=== PATIENT | female | born 1995 | race Caucasian/White ===

== ENCOUNTER 2020-07-26 11:00 | Outpatient (RCR) | payer OTHER, SELFPAY | END 2020-08-10 10:46 | disposition home or self-care (01) | LOC: HO.PTCHIC 11:00 | PROVIDERS: PCP Pediatrics; Visit Provider Pediatrics | DX: M54.9 Dorsalgia, unspecified (principal) | CPT/HCPCS: 97110; 97112; 97161 ==

== ENCOUNTER 2022-12-24 19:02 | Outpatient (REF) | payer OTHER, SELFPAY | END 2022-12-24 19:03 | disposition home or self-care (01) | LOC: HO.CHCLNP 19:02 | PROVIDERS: Visit Provider Advanced Practice Midwife | DX: Z12.4 Encounter for screening for malignant neoplasm of cervix (principal) | CPT/HCPCS: 88142 ==

== ENCOUNTER 2023-01-15 11:53 | Outpatient (REF) | payer OTHER, SELFPAY ==
[2023-01-15 14:27] LABS: MANUAL DIFF FLAG NO
[2023-01-15 14:43] LABS: Basophils Percent Auto 0.5 % (0-2); Eosinophils Absolute Auto 0.1 X10*3/uL (0.0-0.4); Eosinophils Percent Auto 0.8 % (0-4); Hematocrit 37.6 % (37.0-47.0); Hemoglobin 11.9 g/dl (12.0-16.0); Imm Gran Abs Auto 0.03 X10*3/uL (0.00-0.03); Imm Gran Pct Auto 0.4 % (0.0-0.4); Lymphocytes Absolute Auto 1.5 X10*3/uL (1.2-4.9); Lymphocytes Percent Auto 19.6 % (20-40); Mean Corpuscular HGB Conc 31.6 g/dl (31.0-35.0); Mean Corpuscular Volume 85.3 fL (80.0-98.0); Mean Platelet Volume 10.6 fL (9.4-12.3); Monocytes Absolute Auto 0.6 X10*3/uL (0.1-1.2); Monocytes Percent Auto 7.9 % (2-11); Neutrophils Absolute Auto 5.5 x10*3/uL (2.0-8.3); Neutrophils Percent Auto 70.8 % (45-73); Platelet Count 336 X10*3/uL (160-400); Red Blood Count 4.41 X10*6/uL (4.20-5.50); White Blood Count 7.8 X10*3/uL (4.8-10.8)
[2023-01-15 14:53] LABS: Alanine Aminotransferase 20 U/L (0-31); Alkaline Phosphatase 86 U/L (39-117); Anion Gap 11 (12-20); Aspartate Amino Transferase 15 U/L (5-31); Bilirubin Direct 0.2 mg/dL (0.0-0.5); Bilirubin Total 0.7 mg/dL (0.0-1.0); Blood Urea Nitrogen 12 mg/dL (9-16); Calcium 9.4 mg/dL (8.4-10.2); Carbon Dioxide 27 mmol/L (22-29); Chloride 102 mmol/L (96-108); Cholesterol 138 mg/dL (<200); Estimated Glomerular Filt Rate > 60; Glucose Random 78 mg/dL (60-115); HDL Cholesterol 42 mg/dL (>40); LDL Cholesterol Calculated 82 mg/dL (<100); Potassium 4.2 mmol/L (3.3-5.1); Sodium 136 mmol/L (135-145); Total Protein 8.2 g/dL (6.5-8.0); Triglycerides 71 mg/dL (<150)
[2023-01-15 15:12] LABS: TSH reflex Free T4 0.87 uIU/mL (0.32-4.0); Vitamin D 25-OH Total 26.4 ng/mL (>30)
== END 2023-01-15 11:54 | disposition home or self-care (01) ==
LOC: HO.CHCLDS 11:53
PROVIDERS: Visit Provider Pediatrics
DX: E66.9 Obesity, unspecified (principal); Z68.39 Body mass index [BMI] 39.0-39.9, adult
CPT/HCPCS: 36415; 80048; 80061; 80076; 82306; 84443; 85025

== ENCOUNTER 2024-04-29 | Outpatient (REF) | payer BC, SELFPAY ==
[2024-05-07 09:35] LABS: HPV Genotype 16 Negative (Negative); HPV Genotype 18 Negative (Negative); HPV High Risk Negative (Negative)
--- OUTSIDE RECORDS SUMMARY | 2024-08-12 13:05 | XMS_ITS | Clinical Summary ---
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 Role Phone Hawa Nation MD Primary Care Provider [phone] Allergies Active Allergy Reactions Criticality Noted Date Comments Fish Allergy Hives 12/29/2019 Green Soap Tincture 12/24/2022 [facility] soap Medications cetirizine (ZyrTEC) 10 MG tablet TAKE 1 TABLET BY MOUTH EVERY DAY IN THE MORNING 30 tablet 11 08/02/2022 Active fluticasone (Flonase) 50 MCG/ACT nasal sprayIndication s:Rhinosinusiti s SPRAY 1 SPRAY INTO EACH NOSTRIL IN THE MORNING 16 mL 3 08/27/2022 Active Vit-Fe Fumarate-FA ( Plus) 27-1 MG tablet One tablet by mouth daily 30 tablet 11 04/29/2024 Active Active Problems Problem Noted Date Diagnosed Date Elevated blood pressure reading 07/01/2022 Rhinosinusitis 07/01/2022 Assessment & Plan (07/01/2022 4:22 PM EDT): Use NS prn rhinorrhea. Rx Flonase + loratadine daily Take ibuprofen prn fever, body aches Out of work x 1d, back on 07/03 Social History Tobacco Use Types Packs/Day Years Used Date Smoking Tobacco: Never Passive Smoke Exposure: Never Smokeless Tobacco: Never Tobacco Cessation:Counseling Given: Not Answered Alcohol Use Standard Drinks/Week Comments Yes 0 (1 standard drink = 0.6 oz pur e alcohol) Just socially Comments No Intention Date Recorded Wants to become (finding) 04/29 Sex and Gender Information Value Date Recorded Sex Assigned at Female 12/17/2021 10:35 AM EDT Legal Sex Female 10:35 AM EDT Gender Identity Female 12/24/2022 11:26 AM EST Sexual Orientation Straight 04/10/2023 8: 33 PM EST Last Filed Vital Signs Vital Sign Reading Time Taken Comments Blood Pressure 141/82 04/29/2024 9:08 AM EDT Pulse 65 04/29/2024 9:08 AM EDT Temperature 37 C (98.6 F) 04/29/2024 9:08 AM EDT Respiratory Rate 18 04/29/2024 9:08 AM EDT Oxygen Saturation 98% 04/29/2024 9:08 AM EDT Inhaled Oxygen Concentration - - Weight 122 kg (268 lb) 04/29/2024 9:08 AM EDT Height 170.2 cm (5' 7 ) 04/29/2024 9:08 AM EDT Body Mass Index 41.97 04/29/2024 9:08 AM EDT Plan of Treatment Health Maintenance Due Date Last Done Comments Depression Screening 1995 SDOH Screening 1995 Alcohol/Substance Use Screening 2006 Hepatitis B Vaccines (1 of 3 - 19+ 3-dose series) 2013 COVID-19 Vaccine ( season) 2023 Influenza Vaccine (Season Ended) 2024 10/19/2016, 09/25/2016, 04/25/2015, Additional history exists Disability Screening 04/28/2025 04/28/2024 Family Planning (PISQ) 04/29/2025 04/29/2024 Tobacco Screening 04/29/2025 04/29/2024 HPV/Cotest 04/30/2027 04/29/2024 Pap Smear 04/30/2027 04/29/2024, 11/0 08/2022, 12/29/2019 DTaP/Tdap/Td Vaccines (2 - Td or Tdap) 08/16/2031 08/15/2021 Zoster Vaccines (1 of 2) 2044 RSV Patients and Patients Aged 60 years or older (1 - 1-dose 75+ series) 2069 Hepatitis A Vaccines Aged Out 10/16/2015 No long er eligible based on patient's age to complete this topic HIV Screening Completed 04/29/2024 Hepatitis C Screening Completed 04/29/2024 HIB Vaccines Aged Out No longer eligi ble based on patient's age to complete this topic HPV Vaccines Aged Out No longer eligi ble based on patient's age to complete this topic IPV Vaccines Aged Out No longer eligi ble based on patient's age to complete this topic Meningococcal B Vaccine Aged Out No l onger eligible based on patient's age to complete this topic Meningococcal Vaccine Aged Out No inez ronnell eligible based on patient's age to complete this topic Pneumococcal Vaccine: Pediatrics (0 to 5 Years) and At-Risk Patients (6 to 49) Years Aged Out No longer eligible based on patient's age to complete this topic RSV under 20 months Aged Out No longe r eligible based on patient's age to complete this topic Rotavirus Vaccines Aged Out No longer eligible based on patient's age to complete this topic Procedures Procedure Name Priority Date/Time Associated Diagnosis Comments US PELVIS TRANSVAGINAL Routine 05/13/2024 Dysmenorrhea US PELVIS COMPLETE Urgent 05/13/2024 Dysmenorrhea HEPATITIS C AB W/REFL TO HCV RNA, QN, PCR Routine 04/29/2024 9:59 AM EDT Screening examination for venereal disease HIV 1/2 ANTIGEN/ANTIBODY, FOURTH GENERATION W/RFL Routine 04/29/2024 9:59 AM EDT Screening examination for venereal disease HPV DNA, LOW/HIGH RISK Routine 04/29/2024 9:34 AM EDT PAP SMEAR Routine 04/29/2024 9:34 AM EDT Cervical cancer screening from Last 3 Months or Most Recently Relevant to Health Maintenance Results * Us Pelvis complete (05/13/2024) Anatomical Region Laterality Modality Pelvis Ultrasound us Radha Olson [facility] IM US PROCEDURES Final R esult * US Pelvis Transvaginal (05/13/2024) Anatomical Region Laterality Modality Pelvis Ultrasound Result [facility] Radha Olson [facility] US PROCEDURES Final R esult * Hepatitis C Antibody with Reflex to HCV, RNA, Quantitative, Real-Time PCR (04/29/2024 9:59 AM EDT) [facility] Hepatitis C Antibody Nonreactive Nonreactive [facility] Comment:Antibodies to HCV no t detected; does not exclude early acuteHCV infection. Blood Venous blood specimen / Unknown 04/29/2024 9:59 AM EDT 04/29/2024 2:13 PM EDT Result [facility] LAB BLOOD ORDERABLES Daxa em Result [facility] [address] [place] [phone] * HIV-1/2 Antigen and Antibodies, Fourth Generation, with Reflexes (04/29/2024 9:59 AM EDT) [facility] HIV AB/AG Nonreactive Nonreactive [facility] Comment:HIV-1 p24 Ag and/or HIV-1/HIV-2 Ab not detected.A test result that is nonreactive does not exclude thepossibility of exposure to or infection with HIV-1 and/orHIV-2. Nonreactive results in this assay for individualswith prior exposure to HIV-1 and/or HIV-2 may be due toantigen and antibody levels that are below the limit ofdetection of this assay.The [employer] [employer] HIV Ag/Ab Combo assay result andsupplemental assay results should be interpreted inconjunction with the patient's clinical presentation,history and other laboratory results. If the results areinconsistent with clinical evidence, additional testing issuggested to confirm the result. Blood Venous blood specimen / Unknown 04/29/2024 9:59 AM EDT 04/29/2024 2:13 PM EDT Radha Olson [facility] LAB BLOOD ORDERABLES Daxa l Result Performing Organization Address [facility]/ZIP Co de Phone Number [facility] [address] [place] [phone] * HPV DNA, Low/High Risk (04/29/2024 9:34 AM EDT) HPV High Risk Negative Negative [facility] HPV Genotype 16 Negative Negative [facility] HPV Genotype 18 Negative Negative [facility] Comment:HPV testing performe d at [facility] (CLIA#[id number]), [address] [place] [address].Testing for HPV was performed using the Sara LOW 6800system. The presence of HPV in the female genital tract isassociated with a number of diseases, including cervicalcarcinoma. The HPV DNA high risk pool tests for HPV 31, 33,35, 39, 45, 51, 52, 56, 58, 59, 66 and 68. The testing forHPV 16 and 18 genotypes has also been performed. A positiveresult indicates detection of nucleic acid sequences fromone or more subtypes, whereas a negative result indicatessuch sequences were not detected. 04/29/2024 9:34 AM EDT 04/30/2024 9:34 AM EDT Radha Olson [facility] LAB BLOOD ORDERABLES Daxa l Result Performing Organization Address City/[facility]/ZIP Co de Phone Number [facility] [address] [place] [phone] * Pap Smear (04/29/2024 9:34 AM EDT) Swab Cervix uteri structure / Unknown 04/29/2024 9:34 AM EDT 04/30/2024 7:30 AM EDT Narrative [facility] - 05/10/2024 8:41 AM EDT ----- ------- Name: Mandy Whitfield Age/Sex: 28/F : 1995 Unit#: [id number] Attend Dr: Re04/29/24 Status: PRE REF Location: [facility] Disch: ----- ------- SPEC : [id number] RECD: 04/30/24 STATUS: WICHO LONG NUM: [id number] CHAPARRITA: 04/29/[address]: RADHA OLSON [facility] ENTERED: 04/30/24 SP TYPE: Pap Smr OT DR: ORDERED: Pap Smear Interpretation Satisfactory for evaluation. Negative for intraepithelial lesion or malignancy. Coccobacilli consistent with shift in vaginal pardeep. Mild inflammation. 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
== END 2024-04-29 00:01 | disposition home or self-care (01) ==
LOC: HO.LNP
PROVIDERS: Visit Provider Advanced Practice Midwife
DX: Z11.3 Encounter for screening for infections with a predominantly sexual mode of transmission (principal)
CPT/HCPCS: 87491; 87591; 87626; 87661; 88175

== ENCOUNTER 2024-04-29 09:54 | Outpatient (REF) | payer BC, SELFPAY ==
--- OUTSIDE RECORDS SUMMARY | 2024-04-29 12:12 | XMS_ITS | Clinical Summary ---
Author Organization [employer] Address [address] [facility] 7[address] [place] [address] Care Team Providers Care Registered Pharmacy Technician Name Role Phone Hawa Nation MD Primary Care Provider [phone] Allergies Active Allergy Reactions Criticality Noted Date Comments Fish Allergy Hives 12/29/2019 Green Soap Tincture 12/24/2022 [facility] soap Medications cetirizine (ZyrTEC) 10 MG tablet TAKE 1 TABLET BY MOUTH EVERY DAY IN THE MORNING 30 tablet 11 08/03/19 23 Active fluticasone (Flonase) 50 MCG/ACT nasal sprayIndicatio ns:Rhinosinusi tis SPRAY 1 SPRAY INTO EACH NOSTRIL IN THE MORNING 16 mL 3 08/28/19 23 Active naproxen (Naprosyn) 500 MG tablet Take 1 tablet (500 mg) by mouth 2 times daily. Take with food during menses up to 7 days. 60 tablet 04/30/19 25 025 Active Vit-Fe Fumarate-FA ( Plus) 27-1 MG tablet One tablet by mouth daily 30 tablet 11 04/30/19 25 Active Vit-Fe Fumarate-FA ( Plus) 27-1 MG tablet One tablet by mouth daily 30 tablet 11 04/12/19 24 025 Discontinued(Re order (will not trigger notification to Pharmacy)) Active Problems Problem Noted Date Diagnosed Date Elevated blood pressure reading 07/01/2022 Rhinosinusitis 07/01/2022 Assessment & Plan (07/01/2022 4:22 PM EDT): Use NS prn rhinorrhea. Rx Flonase + loratadine daily Take ibuprofen prn fever, body aches Out of work x 1d, back on 07/03 Encounters Date Type Department Care Team Description 04/29/2024 9:00 AM EDT Procedure Visit [facility] [address] [place] [address] Sandrine Olson CNM Cervical cancer screening (Primary Dx); Screening examination for venereal disease; Procreative management; Dysmenorrhea 04/28/2024 Telephone [facility] [address] [place] [address] Hawa Nation MD Insurance 04/28/2024 Travel from Last 3 Months Social History Tobacco Use Types Packs/Day Years Used Date Smoking Tobacco: Never Passive Smoke Exposure: Never Smokeless Tobacco: Never Tobacco Cessation:Counseling Given: Not Answered Alcohol Use Standard Drinks/Week Comments Yes 0 (1 standard drink = 0.6 oz pur e alcohol) Just socially Comments No Sex and Gender Information Value Date Recorded Sex Assigned at Female 12/17/2021 10:35 AM EDT Legal Sex Female 10:35 AM EDT Gender Identity Female 12/24/2022 11:26 AM EST Sexual Orientation Straight 04/10/2023 8: 33 PM EST Last Filed Vital Signs Vital Sign Reading Time Taken Comments Blood Pressure 141/82 04/29/2024 9:08 AM EDT Pulse 65 04/29/2024 9:08 AM EDT Temperature 37 ??C (98.6 ??F) 04/29/2024 9:08 AM EDT Respiratory Rate 18 04/29/2024 9:08 AM EDT Oxygen Saturation 98% 04/29/2024 9:08 AM EDT Inhaled Oxygen Concentration - - Weight 122 kg (268 lb) 04/29/2024 9:08 AM EDT Height 170.2 cm (5' 7 ) 04/29/2024 9:08 AM EDT Body Mass Index 41.97 04/29/2024 9:08 AM EDT Plan of Treatment Health Maintenance Due Date Last Done Comments Depression Screening 1994 HIV Screening 1994 SDOH Screening 1994 Alcohol/Substance Use Screening 2006 Hepatitis C Screening 2012 Hepatitis B Vaccines (1 of 3 - 19+ 3-dose series) 2013 Pap Smear 03/03/2023 12/24/2022, 12/29/2019 COVID-19 Vaccine ( - season) 2023 Influenza Vaccine (#1) 2023 7, 09/25/2016, 04/25/2015, Additional history exists Family Planning (PISQ) 04/29/2025 04/29/2024 Tobacco Screening 04/29/2025 04/29/2024 DTaP/Tdap/Td Vaccines (2 - Td or Tdap) 08/16/2031 08/15/2021 Zoster Vaccines (1 of 2) 2044 RSV Patients and Patients Aged 60 years or older (1 - 1-dose 75+ series) 2069 Hepatitis A Vaccines Aged Out 10/16/2015 No long er eligible based on patient's age to complete this topic HIB Vaccines Aged Out No longer eligi ble based on patient's age to complete this topic HPV Vaccines Aged Out No longer eligi ble based on patient's age to complete this topic IPV Vaccines Aged Out No longer eligi ble based on patient's age to complete this topic Meningococcal Vaccine Aged Out No inez ronnell eligible based on patient's age to complete this topic Pneumococcal Vaccine: Pediatrics (0 to 5 Years) and At-Risk Patients (6 to 49) Years) Aged Out No longer eligible based on patient's age to complete this topic RSV under 20 months Aged Out No longe r eligible based on patient's age to complete this topic Rotavirus Vaccines Aged Out No longer eligible based on patient's age to complete this topic Procedures Procedure Name Priority Date/Time Associated Diagnosis Comments PAP SMEAR Routine 12/24/2022 11:13 AM EST Cervical cancer screening from Last 3 Months or Most Recently Relevant to Health Maintenance Results * Pap Smear (12/24/2022 11:13 AM EST) Swab Cervix uteri structure / Unknown 12/24/2022 11:13 AM EST 12/25/2022 7:30 AM EST Narrative [facility] - 01/07/2023 11:03 AM EST ----- ------- Name: Mandy Whitfield ? Age/Sex: 27/F ? : 1995 Unit#: [id number] ?? Attend Dr: SANDRINE OLSON CNM ?Re12/24/22 ?Status: DEP REF ? Location: HO.[facility] ? Disch: ? ----- ------- SPEC : [id number] ?RECD: 12/25/22 ? STATUS: ??SOUT ? REQ NUM: [id number] ? CHAPARRITA: 12/24/22-1112 ? SUBM DR: SANDRINE OLSON CNM ? ENTERED: ??12/25/22 ?SP TYPE: Pap Smr ?OTHR DR: ? ORDERED: ??Pap Smear ? Interpretation ?? Unsatisfactory ?? Obscuring blood. ?? Scant cellularity. ?Clinical Information LMP: 12/22/2022 Previous PAP test: Unknown date/findings ? Material Received ?? ThinPrep-Cervical ----- ------- Signed (signature on file) ISAURA Banerjee (ASCP) 01/07/23 1103 ? ----- ------- ? END OF REPORT ? us Sandrine Olson [facility] CYTOLOGY ORDERABLES F inal Result [facility] [address] [place] [address] [phone] from Last 3 Months or Most Recently Relevant to Health Maintenance Insurance BCBS Care Teams Registered Pharmacy Technician Relationship Specialty Start Date End Date Hawa Nation MD [address] [place] [phone] PCP - General Family Medicine 07/13/19
--- OUTSIDE RECORDS SUMMARY | 2024-04-29 12:12 | XMS_ITS | Clinical Summary ---
Author Organization [facility] [place] [facility] Address [address] [place] [address] Care Team Providers Care Roller Staker Name Role Phone Unavailable Primary Care Provider Unavailabl e Social History Tobacco Use Types Packs/Day Years Used Date Smoking Tobacco: Never Assessed Comments Unknown Sex and Gender Information Value Date Recorded Sex Assigned at Not on file Legal Sex Female 11:38 PM EST Gender Identity Not on file Sexual Orientation Not on file Plan of Treatment Health Maintenance Due Date Last Done Comments DTaP,Tdap,and Td Vaccines (1 - Tdap) 2013 Hepatitis B Vaccines (1 of 3 - 19+ 3-dose series) 2013 Cervical Cancer Screening: P ap Smear 11/27/2015 COVID-19 Vaccine ( - 2023-2 5 season) 2023 Influenza Vaccine (#1) 2023 HIB Vaccines Aged Out No longer eligi ble based on patient's age to complete this topic HPV Vaccines Aged Out No longer eligi ble based on patient's age to complete this topic Hepatitis A Vaccines Aged Out No long er eligible based on patient's age to complete this topic IPV Vaccines Aged Out No longer eligi ble based on patient's age to complete this topic MMR Vaccines Aged Out No longer eligi ble based on patient's age to complete this topic Meningococcal ACWY Vaccine Aged Out N o longer eligible based on patient's age to complete this topic Meningococcal B Vacine Aged Out No lo nger eligible based on patient's age to complete this topic Pneumococcal Vaccine: Pediat rics (0 to 5 Years) and At-Risk Patients (6 to 64 Years) Aged Out No longer eligible b ased on patient's age to complete this topic RSV Immunization Patients Un mega 20 months Aged Out No longer eligible b ased on patient's age to complete this topic Varicella Vaccines Aged Out No longer eligible based on patient's age to complete this topic
--- OUTSIDE RECORDS SUMMARY | 2024-04-29 12:12 | XMS_ITS | Encounter Summary ---
Author Organization [employer] Address [address] [facility] 7 [place] [address] Care Team Providers Care Security Flex Utility Officer Name Role Phone Hawa Nation MD Primary Care Provider [phone] Encounter Details Date Type Department Care Team (Latest Contact Info) Description 04/28/2024 Travel Social History Tobacco Use Types Packs/Day Years Used Date Smoking Tobacco: Never Passive Smoke Exposure: Never Smokeless Tobacco: Never Alcohol Use Standard Drinks/Week Comments Never 0 (1 standard drink = 0.6 oz pur e alcohol) Comments No Sex and Gender Information Value Date Recorded Sex Assigned at Female 12/17/2021 10:35 AM EDT Legal Sex Female 10:35 AM EDT Gender Identity Female 12/24/2022 11:26 AM EST Sexual Orientation Straight 04/10/2023 8: 33 PM EST documented as of this encounter Plan of Treatment Not on file documented as of this encounter Visit Diagnoses Not on filedocumented in this encounter Care Teams Security Flex Utility Officer Relationship Specialty Start Date End Date Hawa Nation MD [address] [place] [address] PCP - General Family Medicine 07/13/19 documented as of this encounter
--- OUTSIDE RECORDS SUMMARY | 2024-04-29 12:12 | XMS_ITS | Encounter Summary ---
Author Organization [employer] Address [address] [place] [address] [address] [place] [address] Care Team Providers Care Clinical Genetics Laboratory Chief Name Role Phone Hawa Nation MD Primary Care Provider [phone] Reason for Visit * Reason Onset Date Comments Insurance 04/28/2024 Encounter Details Date Type Department Care Team ([facility] Contact Info) Description 04/28/2024 Telephone [facility] [address] [place], [place] [phone] Hawa Nation MD [address] [place], [place] [phone] Insurance Social History Tobacco Use Types Packs/Day Years [...] PM EST documented as of this encounter Miscellaneous Notes * Telephone Encounter - Isacc Serna - 04/28/2024 10:49 AM EDT Outgoing call to pt informed her about scheduled appt tmrw with Petros.FD mentioned to pt we did not have an active insurance listed for her. Pt stated she was at work that she would bring card in for tmrws visit. documented in this encounter Plan of Treatment Not on file documented as of this encounter Visit Diagnoses Not on filedocumented in this encounter Care Teams Clinical Genetics Laboratory Chief Relationship Specialty Start Date End Date Hawa Nation MD [address] [place] [phone] PCP - General Family Medicine 07/13/19 documented as of this encounter
--- OUTSIDE RECORDS SUMMARY | 2024-04-29 12:12 | XMS_ITS | Encounter Summary ---
Author Organization [employer] Address [address] [facility] [address] [place] [address] Care Team Providers Care Heavy Equipment Rental Associate Name Role Phone Hawa Nation MD Primary Care Provider [phone] Reason for Referral * Imaging (Routine) - Authorized Specialty Diagnoses / Procedures Referred By Kay zepeda Referred To Contact Radiology Diagnoses Dysmenorrhea Procedures US Pelvis Transvaginal Sandrine Morrell CNM [address] [place] [address] Phone: tel: fax: [facility] Referral ID Status Reason Start Date Expiration Date V isits Requested Visits Authorized [id number] Authorized 04/29/2024 04/29/2025 1 1 * Imaging (Urgent) - Authorized Specialty Diagnoses / Procedures Referred By Kay zepeda Referred To Contact Radiology Diagnoses Dysmenorrhea Procedures Us Pelvis complete Sandrine Morrell CNM [address] [place] [address] Phone: tel: fax: [facility] Referral ID Status Reason Start Date Expiration Date V isits Requested Visits Authorized [id number] Authorized 04/29/2024 04/29/2025 1 1 Reason for Visit * Reason Comments Gynecologic Exam Encounter Details Date Type Department Care Team (Latest Contact Info) Description 04/29/2024 9:00 AM EDT Procedure Visit [facility] [address] [place] [address] Sandrine Morrell CNM [address] [place] [address] Cervical cancer screening (Primary Dx); Screening examination for venereal disease; Procreative management; Dysmenorrhea Social History Tobacco Use Types Packs/Day Years [...] PM EST documented as of this encounter Last Filed Vital Signs Vital Sign Reading [...] Mass Index 41.97 04/29/2024 9:08 AM EDT documented in this encounter Progress Notes * Sandrine Morrell CNM - 04/29/2024 9:00 AM EDT Subjective Patient ID: Mandy Whitfield is a 28 y.o. 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 Pap unsat 12/2022, NIL 12/2019. History of trichomonas, retest negativein 2020. 1 AMAB partner, no safety concerns. Okay with getting , now more consciously trying. Has not used BC for 15 months. Breast symptoms, notes occasional bumps on breast that come and go. No other breast symptoms and no fam hx of breast cancer. New onset dysmenorrhea for the past year.Monthly menses x 6 days, heavy on days 2 and 3. Cramping precedes bleeding by one day and impacts social events. OTC NSAIDs have not been helpful. Agrees to full STI testing today Patient seen in conjunction with Little Mckeon, [employer] student. I was present for and confirmed all pertinent elements in the history, exam, assessment of the patient, and the plan of care, and agree with all findings. Review of Systems Genitourinary: Positive for menstrual problem. Negative for dyspareunia, dysuria, frequency, genital sores, hematuria, pelvic pain, urgency, vaginal bleeding, vaginal discharge and vaginal pain. No abnormal pap, no abnormal bleeding, no breast pain, no nipple discharge Objective BP (!) 141/82 (BP Location: Left arm, Patient Position: Sitting, BP Cuff Size: Large adult) Pulse65 Temp 98.6 ??F (37 ??C) (Oral) Resp 18 Ht 5' 7 (1.702 m) Wt 268 lb (122 kg) SpO2 98% BMI 41.97 kg/m?? Physical Exam Exam conducted with a metal painter present (Sandrine Morrell CNM). Constitutional: Appearance: Normal appearance. Chest: Breasts: Right: Skin change present. No swelling, bleeding, inverted nipple, mass, nipple discharge or tenderness. Left: Skin change present. No swelling, bleeding, inverted nipple, mass, nipple discharge or tenderness. Comments: Two small resolving areas of folliculitis on left breast and one on right breast. No streaking or exudate. Bilateral nipple piercing well healed. Genitourinary: General: Normal vulva. Labia: Right: No rash, tenderness, lesion or injury. Left: No rash, tenderness, lesion or injury. Vagina: Normal. No signs of injury and foreign body. No vaginal discharge, erythema, tenderness, bleeding or lesions. Cervix: No cervical motion tenderness, discharge, friability, lesion, erythema, cervical bleeding or eversion. Uterus: Normal. Not enlarged and not tender. Adnexa: Right adnexa normal and left adnexa normal. Right: No mass, tenderness or fullness. Left: No mass, tenderness or fullness. Comments: Scant menses Lymphadenopathy: Upper Body: Right upper body: No supraclavicular or axillary adenopathy. Left upper body: No supraclavicular or axillary adenopathy. Neurological: Mental Status: She is alert. Psychiatric: Mood and Affect: Mood normal. Behavior: Behavior normal. Assessment/Plan Diagnoses and all orders for this visit: Cervical cancer screening - Pap Smear If normal repeat 3 years Mild folliculitis noted on chest, try abx ointment, avoid picking or squeezing; if persistent or worsening please let me know and will refer to derm Screening examination for venereal disease - STI testing add on (NG, CT, Trich) - Hepatitis B Core Antibody, Total; Future - Hepatitis B Surface Antibody, Qualitative; Future - Hepatitis B surface antigen, EIA; Future - HIV-1/2 Antigen and Antibodies, Fourth Generation, with Reflexes; Future - Syphilis Screen; Future - Hepatitis C Antibody with Reflex to HCV, RNA, Quantitative, Real-Time PCR; Future Pap based and serum labs ordered, will contact with results Procreative management Reviewed preconception counseling. sent in. Urged toxin avoidance if trying to get for both self and partner. Reviewed that there is no amount of alcohol that is safe in , so best to avoid alcohol while trying to get . Report missed menses. Report irregular periods. Try using ovulation predictor kits to time sex. Not interested in fertility evaluation at this time, but let me know if this changes. Recent intentional weight loss should help improve fertility aswell. Dysmenorrhea - Us Pelvis complete; Future - US Pelvis Transvaginal; Future Sent in Naprosyn and ordered US to r/o structural issues Other orders - naproxen (Naprosyn) 500 MG tablet; Take 1 tablet (500 mg) by mouth 2 times daily. Take with food during menses up to 7 days. - Vit-Fe Fumarate-FA ( Plus) 27-1 MG tablet; One tablet by mouth daily documented in this encounter Plan of Treatment Scheduled Orders Name Type Priority Associated Diagnoses Orde r Schedule Pap Smear Pathology and Cytology Routine Cervical cancer screening Ordered: 04/29/2024 STI testing add on (NG, CT, Trich) Pathology and Cytology Routine Screening examination for venereal disease Ordered: 04/29/2024 Hepatitis B Core Antibody, Total Lab Routine Screening examination for venereal disease Expected: 04/29/2024 (Approximate), Expires: 04/29/2025 Hepatitis B Surface Antibody, Qualitative Lab Routine Screening examination for venereal disease Expected: 04/29/2024 (Approximate), Expires: 04/29/2025 Hepatitis B surface antigen, EIA Lab Routine Screening examination for venereal disease Expected: 04/29/2024 (Approximate), Expires: 04/29/2025 HIV-1/2 Antigen and Antibodies, Fourth Generation, with Reflexes Lab Routine Screening examination for venereal disease Expected: 04/29/2024 (Approximate), Expires: 04/29/2025 Syphilis Screen Lab Routine Screening examination for venereal disease Expected: 04/29/2024 (Approximate), Expires: 04/29/2025 Hepatitis C Antibody with Reflex to HCV, RNA, Quantitative, Real-Time PCR Lab Routine Screening examination for venereal disease Expected: 04/29/2024 (Approximate), Expires: 04/29/2025 Us Pelvis complete Imaging Urgent Dysmenorrhea Expected: 04/29/2024, Expires: 04/29/2025 US Pelvis Transvaginal Imaging Routine Dysmenorrhea Expected: 04/29/2024, Expires: 04/29/2025 documented as of this encounter Visit Diagnoses Diagnosis Cervical cancer screening- Primary Screening for malignant neoplasm of the cervix Screening examination for venereal disease Procreative management Dysmenorrhea documented in this encounter Care Teams Heavy Equipment Rental Associate Relationship Specialty Start Date End Date Hawa Nation MD [address] [place] [phone] PCP - General Family Medicine 07/13/19 documented as of this encounter
[2024-04-30 03:45] LABS: Syphilis Screen Nonreactive (Nonreactive)
[2024-04-30 04:10] LABS: HBS Num1 4.93 mIU/mL (0-7.99); HBc Num1 0.16 S/CO (0.00-0.79); HIV AB/AG Nonreactive (Nonreactive); HIV Num 1 0.06 S/CO (0.00-0.99); Hepatitis B Core Antibody Nonreactive (Nonreactive); Hepatitis B Surface Antigen Negative (Negative); ~HepC Num1 0.21 S/CO (0.00-0.79); ~Hepatitis B Surface Antibody NONREACTIVE (Nonreactive); ~Hepatitis C Antibody Nonreactive (Nonreactive)
== END 2024-04-29 09:55 | disposition home or self-care (01) ==
LOC: HO.CHCLDS 09:54
PROVIDERS: Visit Provider Advanced Practice Midwife
DX: Z11.3 Encounter for screening for infections with a predominantly sexual mode of transmission (principal)
CPT/HCPCS: 36415; 86704; 86706; 86780; 86803; 87340; 87389